=== PATIENT | female | born 1960 | race Caucasian/White ===

== ENCOUNTER 2019-08-12 12:38 | Emergency (ER) | payer OTHER ==
[~2019-08-12] VITALS: Ht 144.8 cm; Wt 74.8 kg
[2019-08-12] MEDS ORDERED: LIDOCAINE1 EACH TRANSDERM (14:45)
[2019-08-12 15:10] VITALS: BP 129/76
== END 2019-08-12 15:00 | disposition home or self-care (01) ==
LOC: ER 12:38
DX: S22.31XA Fracture of one rib, right side, initial encounter for closed fracture (principal); F17.210 Nicotine dependence, cigarettes, uncomplicated; J45.909 Unspecified asthma, uncomplicated; K21.9 Gastro-esophageal reflux disease without esophagitis; Z90.710 Acquired absence of both cervix and uterus; Z88.5 Allergy status to narcotic agent; W18.30XA Fall on same level, unspecified, initial encounter; Y93.89 Activity, other specified; Y92.099 Unspecified place in other non-institutional residence as the place of occurrence of the external cause; Y99.9 Unspecified external cause status